=== PATIENT | male | born 1955 | race Caucasian/White ===

== ENCOUNTER → 2016-05-20 | Outpatient (CLI) | payer BC ==
[~2016-05-20] MED LIST: ACET-1256 PO; BUPR-267 PO; FENO145T26 PO; LOSA1TAB38 PO; LOSA50TA6 PO; MELO7.5T5 PO; OXYC-57 PO; PHEN-876 PO
[2016-05-20 12:43] LABS: BLOOD UREA NITROGEN 19 mg/dl (7-18); BUN/CREATININE RATIO 17.4 (10-20); CALCIUM 9.2 mg/dl (8.5-10.1); CARBON DIOXIDE 25 mmol/L (21-32); CHLORIDE 105 mmol/L (98-107); GLUCOSE 103 mg/dl (70-99); POTASSIUM 4.2 mmol/L (3.5-5.1); SODIUM 138 mmol/L (136-145)
== END | disposition home or self-care (01) ==
LOC: C.LABBFT 09:27
PROVIDERS: ATTEND Urology
DX: N40.0 Benign prostatic hyperplasia without lower urinary tract symptoms (principal); I10 Essential (primary) hypertension

== ENCOUNTER 2016-05-24 08:12 | Day surgery (SDC) | payer BC ==
[2016-05-13 10:55] VITALS: BMI 28.0
--- NOTE | 2016-05-13 11:39 | PAT Medication Instructions ---
Service Date May 13, 2016. Current Home Medication List Acetaminophen (Tylenol), 500 MG PO PRN Meloxicam (Mobic), 7.5 MG PO BID PRN for PRN Medication Instructions For Your Scheduled Surgery Meloxicam (Mobic), 7.5 MG PO BID PRN for PRN (patient not taking currently) - Take the following medications the morning of surgery with a sip of water: Acetaminophen (Tylenol), 500 MG PO PRN (if needed) - Take the following medications as scheduled the night before surgery: Acetaminophen (Tylenol), 500 MG PO PRN (if needed) If you have any questions please call us at [phone] or [phone] ( Jossy) or [phone]
[2016-05-13 12:03] LABS: BASO % 0.7 %; BASO ABS # 0.04 K/uL (0-0.2); COMPLETE YES; HEMATOCRIT 48.7 % (42-52); IG% 0.4 %; LYMPH % 33.7 %; LYMPH ABS # 1.92 K/uL (1.2-3.4); MEAN CELL VOLUME 91.5 fL (80-100); MEAN CORPUSCULAR HEMOGLOBIN 33.6 pg (25-34); MEAN CORPUSCULAR HGB CONC 36.8 g/dl (32-36); MEAN PLATELET VOLUME 10.4 fL (7.4-10.4); MONO % 7.9 %; NEUT % 54.3 %; PLATELET COUNT 161 K/uL (130-400); RED BLOOD COUNT 5.32 M/uL (4.7-6.1); WHITE BLOOD COUNT 5.69 K/uL (4.8-10.8)
--- NOTE | 2016-05-13 12:28 | DIAGNOSTIC IMAGING REPORT ---
CHEST PREADMISSION(PA/LAT) CLINICAL HISTORY: Preoperative chest COMPARISON STUDY: No previous studies for comparison. FINDINGS: The cardiac and mediastinal contours are normal. There is no evidence of focal pulmonary consolidation. There is no evidence of failure. No pleural effusions are visualized.[ IMPRESSION: No active disease in the chest. Electronically signed by: Samy Hammer M.D. 05/13/2016 12:26 PM Dictated Date/Time: 05/13/2016 12:26 PM
[2016-05-13 12:30] LABS: BUN/CREATININE RATIO 16.1 (10-20); CREATININE 0.94 mg/dl (0.60-1.40); POTASSIUM 4.4 mmol/L (3.5-5.1)
[2016-05-13 12:41] LABS: URINE APPEARANCE CLEAR (CLEAR); URINE BILIRUBIN NEG (NEG); URINE COLOR YELLOW; URINE NITRITE NEG (NEG); URINE SPECIFIC GRAVITY 1.011 (1.000-1.030); UROBILINOGEN NEG (NEG)
[2016-05-13 12:54] LABS: MANUAL MICROSCOPIC REQUIRED? NO; REVIEW REQ? NO
--- NOTE | 2016-05-21 14:02 | Anesthesiology Progress Note ---
Anesthesia Progress Note Date of Service May 21, 2016. Progress Notes Patient scheduled for cardio clearance Tuesday05/21/16 secondary to EKG changes before is Tuesday05/24/16 surgery. Cardio clearance received. ECHO done at that appt but only preliminary reading available. Spoke with cardiology office and was told "there is no way we can get that to you today." Cardio office was unsure if final reading would even be available Tuesday. Aware surgery is Tuesday. Discussed with Dr. Yovana Holman (anesthesiologist on case), will proceed with surgery Tuesday pending final ECHO reading (if needed, will see if cardio can do final reading prior to surgery)
[~2016-05-24] VITALS: Ht 193 cm; Wt 108.0 kg
[~2016-05-24 08:12] MED LIST changes: +DEXAMETHASONE SOD INJ 4 MG/ML VIAL ONE; -FENO145T26 PO; +FENTANYL CITRATE INJ 50 MCG/1 ML 2 ML VIAL ONE; +GENTAMICIN INJ 80 MG in DEXTROSE 5% 100ML 100 ML IV SCH; +LACTATED RINGER'S 1000ML 1,000 ML IV SCH; +LIDOCAINE HCL 2% 2 ML VIAL (20MG/ML) ONE; -LOSA1TAB38 PO; +MIDAZOLAM HCL 1 MG/ML 2ML VIAL ONE; +ONDANSETRON INJ 2 MG/ML 2 ML VIAL ONE; -OXYC-57 PO; -PHEN-876 PO; +PROPOFOL IV EMULSION 10 MG/ML 20 ML VIAL IV ONE
[2016-05-24] MEDS ORDERED: GLYCOPYRROLATE INJ 0.2 MG/ML VIAL ONE ×2 (08:13→09:39)
[2016-05-24] MEDS ORDERED: NEOSTIGMINE METHYLSULFATE 5 MG/5 ML SYR ONE (08:13)
[2016-05-24] MEDS ORDERED: ROCURONIUM BROMIDE 10 MG/ML 5 ML VIAL ONE (08:13)
--- NOTE | 2016-05-24 08:30 | History & Physical Bridge Note ---
H&P Re-Evaluation Bridge Note: I have examined the patient, reviewed the History & Physical and in the interval since the performance of the History & Physical I have noted the following changes of clinical significance: No changes noted
[2016-05-24] MEDS ORDERED: FENO145T26 PO (08:39)
[2016-05-24] MEDS ORDERED: LOSA1TAB38 PO (08:39)
[2016-05-24 08:43] VITALS: BP 165/93; PULSE 72; TEMP 36.4; O2SAT 94; Ht 193 cm; Wt 108.0 kg
[2016-05-24] MEDS ORDERED: ALBUTEROL HFA INHALER 8.5 GM INH ONE (09:20)
[2016-05-24] MEDS ORDERED: DEXAMETHASONE SOD INJ 4 MG/ML VIAL ONE (09:20)
[2016-05-24] MEDS ORDERED: EpHEDrine SULFATE 50MG/5ML SYR ONE (09:32)
--- NOTE | 2016-05-24 09:59 | [facility] Post Operative Brief Note ---
Immediate Operative Summary Operative Date May 24, 2016. Pre-Operative Diagnosis Bladder mass Post-Operative Diagnosis Bladder mass Procedure(s) Performed Transuretheral Resection Bladder Tumor Surgeon Dr. Bess Hvac R Instructor Surgeon(s) none Estimated Blood Loss 1 cc Findings papillary bladder tumor lateral to left uo Specimens A: Bladder Tumor Drains none
[2016-05-24] MEDS ORDERED: PHEN-876 PO (10:00)
[2016-05-24] MEDS ORDERED: OXYC-57 PO (10:00)
[2016-05-24] MEDS ORDERED: OXYCODONE/ACETAMINOPHEN 5-325 TAB PO PRN (10:00)
--- NOTE | 2016-05-24 10:00 | Discharge Instructions ---
Discharge Instructions Visit Reason for Visit: Bladder Cancer Discharge Discharge Diagnosis / Problem: bladder cancer Discharge Goals Goal(s): Therapeutic intervention Activity Recommendations Activity Limitations: resume your previous activity (take it easy today) Anesthesia . Post Anesthesia Instructions: If you have had General Anesthesia or IV Sedation: * Do not drive today. * Resume driving when surgeon permits. * Do not make important decisions or sign legal documents today. * Call surgeon for: 1. Temperature elevations greater than 101 degrees F. 2. Uncontrollable pain. 3. Excessive bleeding. 4. Persistent nausea and vomiting. 5. Medication intolerance (nausea, vomiting or rash). * For nausea and vomiting use only clear liquids such as: tea, soda, bouillon until nausea subsides, then gradually increase diet as tolerated. * If you have any concerns or questions, call your surgeon's office. If physician is unavailable and it is an emergency, call 911 or go to the nearest emergency room. . Diet Recommendations Recommended Home Diet: resume previous diet Procedures Procedures Performed: Transuretheral Resection Bladder Tumor Pending Studies Studies pending at discharge: no Medical Emergencies . Who to Call and When: Medical Emergencies: If at any time you feel your situation is an emergency, please call 911 immediately. . Non-Emergent Contact Non-Emergency issues call your: Urologist . . "Provider Documentation" section prepared by James Bess. [place] Drug Monitoring Program Search Results: patient reviewed within database
--- NOTE | 2016-05-24 10:35 | Anesthesiology Progress Note ---
Anesthesia Post Op Note Date & Time May 24, 2016 at 10:36 Vital Signs Pain Intensity: 0 Vital Signs Past 12 Hours Date Time Temp Pulse Resp B/P Pulse Ox O2 Delivery O2 Flow Rate FiO2 05/24/16 10:25 68 17 126/73 94 Room Air 05/24/16 10:15 70 18 131/71 96 Mask 10 05/24/16 10:05 81 16 174/96 100 Mask 10 05/24/16 09:59 36.2 75 17 153/136 99 Mask 10 05/24/16 08:43 36.4 72 20 165/93 94 Room Air Notes Mental Status: alert / awake / arousable, participated in evaluation Pt Amnestic to Procedure: Yes Nausea / Vomiting: adequately controlled Pain: adequately controlled Airway Patency, RR, SpO2: stable & adequate BP & HR: stable & adequate Hydration State: stable & adequate Anesthetic Complications: no major complications apparent
[2016-05-24 10:45] VITALS: BP 132/68; PULSE 62; TEMP 36.4; O2SAT 96
[2016-05-24 11:14] VITALS: BP 136/73; PULSE 57; TEMP 36.2; O2SAT 95
--- NOTE | 2016-05-24 11:41 | OPERATIVE REPORT ---
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 POSTOPERATIVE DIAGNOSIS: Same. PROCEDURES: Cystoscopy, transurethral resection, fulguration of bladder tumor medium size. FINDINGS: Cystoscopic exam revealed normal anterior urethra. Prostatic fossa was nonobstructing. Bladder showed tumor just lateral to the left ureteral orifice. Rest of the bladder was unremarkable. SURGEON: Dr. Bess. ANESTHESIA: General. DRAINS: None. COMPLICATIONS: None. SPECIMENS: Bladder tumor fragments. INDICATIONS: The patient is a 61-year-old white male who on cystoscopy for hematuria evaluation was found to have a papillary bladder tumor. He is being brought in now for resection. PROCEDURE IN DETAIL: After the induction of an adequate general anesthetic and appropriate time-out, the patient was placed in the dorsal lithotomy position, lower abdomen and genitalia were prepped with Hibiclens and draped in a sterile fashion. Using a 22-Guinean cystoscope, routine cystoscopic exam was performed with the above noted findings with the 30 and 70 degree lenses. Next, a 5-Guinean Pollack catheter was passed up the left ureteral orifice into the left ureter since the tumor was very close to the ureteral orifice. Next, using a 24-Guinean resection scope and bipolar loop, the tumor was resected in its entirety. The area was then fulgurated for hemostasis. An Document Agility evacuator was used to evacuate all the bladder tumor fragments which were handed off the table. Final view revealed no bleeding from the resection site. There were no bladder tumor fragments remaining in the bladder. The patient's bladder was then drained, cystoscope and sheath were removed. All needle, sponge and instrument counts were correct at the end of the case. The patient tolerated the procedure well and was taken to the recovery room in stable condition. I attest to the content of the Intraoperative Record and any orders documented therein. Any exceptio ns are noted below.
[2016-05-24 11:45] VITALS: BP 155/83; PULSE 56; TEMP 36.2; O2SAT 95
== END 2016-05-24 11:45 | disposition home or self-care (01) ==
LOC: C.ACU 08:12
PROVIDERS: ATTEND Urology
DX: C67.9 Malignant neoplasm of bladder, unspecified (principal); I10 Essential (primary) hypertension; M19.90 Unspecified osteoarthritis, unspecified site; Z87.39 Personal history of other diseases of the musculoskeletal system and connective tissue; Z87.891 Personal history of nicotine dependence; Z98.890 Other specified postprocedural states; Z91.040 Latex allergy status; Z82.49 Family history of ischemic heart disease and other diseases of the circulatory system; Z83.3 Family history of diabetes mellitus; Z80.3 Family history of malignant neoplasm of breast; Z68.28 Body mass index [BMI] 28.0-28.9, adult

== ENCOUNTER → 2016-11-18 | Outpatient (CLI) | payer BC ==
[~2016-11-18] MED LIST changes: -DEXAMETHASONE SOD INJ 4 MG/ML VIAL ONE; +FENO145T26 PO; -FENTANYL CITRATE INJ 50 MCG/1 ML 2 ML VIAL ONE; -GENTAMICIN INJ 80 MG in DEXTROSE 5% 100ML 100 ML IV SCH; -LACTATED RINGER'S 1000ML 1,000 ML IV SCH; -LIDOCAINE HCL 2% 2 ML VIAL (20MG/ML) ONE; +LOSA1TAB38 PO; -LOSA50TA6 PO; -MIDAZOLAM HCL 1 MG/ML 2ML VIAL ONE; -ONDANSETRON INJ 2 MG/ML 2 ML VIAL ONE; +OXYC-57 PO; +PHEN-876 PO; -PROPOFOL IV EMULSION 10 MG/ML 20 ML VIAL IV ONE
== END | disposition home or self-care (01) ==
LOC: C.PATHSPEC 17:18
PROVIDERS: ATTEND Urology
DX: C67.9 Malignant neoplasm of bladder, unspecified (principal)

== ENCOUNTER → 2017-06-28 | Outpatient (CLI) | payer BC ==
[~2017-06-28] MED LIST changes: -OXYC-57 PO; -PHEN-876 PO
[2017-06-28 12:23] LABS: HEMATOCRIT 45.7 % (42-52); HEMOGLOBIN 16.6 g/dL (14.0-18.0); MEAN CELL VOLUME 93.6 fL (80-100); MEAN CORPUSCULAR HGB CONC 36.3 g/dl (32-36); MEAN PLATELET VOLUME 10.6 fL (7.4-10.4); PLATELET COUNT 167 K/uL (130-400); RED CELL DISTRIBUTION WIDTH CV 12.3 % (11.5-14.5); RED CELL DISTRIBUTION WIDTH SD 41.3 fL (36.4-46.3); WHITE BLOOD COUNT 7.23 K/uL (4.8-10.8)
[2017-06-28 13:18] LABS: BLOOD UREA NITROGEN 21 mg/dl (7-18); CARBON DIOXIDE 29 mmol/L (21-32); CHOLESTEROL 230 mg/dl (0-200); CREATININE 1.17 mg/dl (0.60-1.40); GLUCOSE 90 mg/dl (70-99); POTASSIUM 3.8 mmol/L (3.5-5.1); SODIUM 138 mmol/L (136-145)
== END | disposition home or self-care (01) ==
LOC: C.LABBFT 09:53
PROVIDERS: ATTEND Physician Assistant Medical
DX: C67.9 Malignant neoplasm of bladder, unspecified (principal); I10 Essential (primary) hypertension; E78.00 Pure hypercholesterolemia, unspecified; Z11.59 Encounter for screening for other viral diseases

== ENCOUNTER → 2017-07-26 | Day surgery (SDC) | payer BC ==
[2017-07-08 15:53] VITALS: Ht 188 cm; Wt 109.1 kg
[2017-07-18 12:17] LABS: BASO % 0.9 %; BASO ABS # 0.05 K/uL (0-0.2); EOS % 2.6 %; EOS ABS # 0.14 K/uL (0-0.5); HEMATOCRIT 43.2 % (42-52); HEMOGLOBIN 15.8 g/dL (14.0-18.0); IG# 0.01 K/uL (0.00-0.02); LYMPH ABS # 1.65 K/uL (1.2-3.4); MEAN CELL VOLUME 93.7 fL (80-100); MEAN CORPUSCULAR HEMOGLOBIN 34.3 pg (25-34); MEAN CORPUSCULAR HGB CONC 36.6 g/dl (32-36); MEAN PLATELET VOLUME 10.4 fL (7.4-10.4); MONO ABS # 0.48 K/uL (0.11-0.59); NEUT % 56.3 %; PLATELET COUNT 181 K/uL (130-400); RED CELL DISTRIBUTION WIDTH SD 40.4 fL (36.4-46.3); WHITE BLOOD COUNT 5.33 K/uL (4.8-10.8)
[2017-07-18 12:25] LABS: PTT PATIENT 26.8 SECONDS (21.0-31.0)
[2017-07-18 12:44] LABS: CALCIUM 9.2 mg/dl (8.5-10.1); CREATININE 1.19 mg/dl (0.60-1.40); POTASSIUM 4.2 mmol/L (3.5-5.1)
[~2017-07-26] VITALS: Ht 188 cm; Wt 109.1 kg
[~2017-07-26] MED LIST changes: -ACET-1256 PO; +ACETAMINOPHEN 325 MG TAB PO PRN; +AMLO-110 PO; +ATROPINE SULFATE 0.1 MG/ML 5ML SYR IV PRN; +BUPIVACAINE 0.25% 2.5MG/ML PF 10 ML VIAL ONE; -BUPR-267 PO; +CEFAZOLIN 2000MG IV PUSH 15 ML IV SCH; -FENO145T26 PO; +FENTANYL CITRATE INJ 50 MCG/1 ML 2 ML VIAL IV PRN; +FENTANYL CITRATE INJ 50 MCG/1 ML 2 ML VIAL ONE; +HYDR25TA4 PO; +KETOROLAC TROMETHAMINE 30 MG/ML VIAL IV. PRN; +LABETALOL HCL IV 5 MG/ML 20ML IV PRN; +LACTATED RINGER'S 1000ML 1,000 ML IV SCH; +LIDOCAINE HCL 2% 2 ML VIAL (20MG/ML) ONE; +LIDOCAINE/EPINEPHRINE 1% 20 ML VIAL ONE; -MELO7.5T5 PO; +MELO7.5T7 PO; +METOCLOPRAMIDE HCL INJ 5 MG/ML 2 ML VIAL IV PRN; +MIDAZOLAM HCL 1 MG/ML 2ML VIAL ONE; +ONDANSETRON INJ 2 MG/ML 2 ML VIAL IV PRN; +OXYCODONE/ACETAMINOPHEN 5-325 TAB PO PRN; +PROPOFOL IV EMULSION 10 MG/ML 20 ML VIAL IV ONE; +ROSU5TAB19 PO; +SODIUM CHLORIDE 0.9% 1000ML 1,000 ML IV SCH
--- NOTE | 2017-07-26 09:18 | [facility] Post Operative Brief Note ---
Immediate Operative Summary Operative Date Jul 26, 2017. Pre-Operative Diagnosis Right Posterior Neck soft tissue mass Post-Operative Diagnosis same as pre op Procedure(s) Performed Right Posterior Neck Lump Excision Surgeon Dr Brunson Sand Slinger Operator Surgeon(s) LEAH Garcia Estimated Blood Loss 2 Findings Consistent with Post-Op Diagnosis Specimens 3.8x2.2 cm firm nodule sent to pathology Drains None Anesthesia Type MAC Complication(s) none Disposition Disposition: Recovery Room / PACU
[2017-07-26 09:30] VITALS: TEMP 36.4
--- NOTE | 2017-07-26 09:32 | Discharge Instructions ---
Discharge Instructions Date of Service Jul 26, 2017. Admission Reason for Admission: Right Posterior Neck Lipoma,D17.9,Z01.818 Discharge Discharge Diagnosis / Problem: posterior neck mass Discharge Goals Goal(s): Decrease discomfort, Improve function Activity Recommendations Activity Limitations: per Instructions/Follow-up section ACTIVITY RECOMMENDATIONS: __Normal activities _x_No bending, lifting or straining __No driving _x_Driving allowed when you are off pain medications _x Walking permitted __You should have help at home for ___ days DRESSINGS: __No dressings required _x_Keep dressings dry/in place until first office visit __Remove dressings ___ and leave dressings off _x_Apply ice _3__ days __Remove dressings and reapply garment __Apply antibiotic ointment (Bacitracin, Neosporin, etc) to wounds 3-4 times/ day for 10 days BATHING: _x_Keep dressings dry _x_Sponge bathing permitted away from incision area __Showering permitted _x_No swimming, hot tubs or soaking in a tub MEDICATIONS: Resume previous medications unless instructed otherwise by your surgeon. _x_Do not use aspirin, Motrin, Advil or Ibuprofen as these may promote bleeding. Please use Tylenol. _x_Prescription(s) provided:pain medication was provided at your last office visit OTHER INSTRUCTIONS: __Record drain output 2-3 times per day SPECIAL CARE INSTRUCTIONS: * It is normal to have a mild fever after surgery. If your temperature is higher than 101.5 degrees F, please call the office at [phone]. * Constipation is a typical side effect of pain medication. An over-the- counter stool softener will help relieve this. * Leaking around surgical drains may occur and should not cause concern. Sometimes these drains become clogged. If this happens, remove the bulb and milk the clot out of the tube, then replace the bulb. * Drainage from wounds after liposuction is normal and should be expected. Garments will become soiled. You should protect furniture and bedding. This drainage should mostly subside within 2-3 days. Leave garments in place unless instructed to remove them. * If you have unusual drainage from a wound or are concerned you have an infection or have any questions or concerns, please call the office at [phone]. FOLLOW UP VISIT: If not already scheduled, please call the office, , when you return home after surgery to schedule an appointment to be seen in _2__ days. . Current Hospital Diet Patient's current hospital diet: Discharge Diet Recommended Diet: Regular Diet Procedures Procedures Performed: Right Posterior Neck Lump Excision Pending Studies Studies pending at discharge: yes List of pending studies: pathology Laboratory Results Lipid Panel Test 06/28/17 10:01 Range/Units Triglycerides Level 636 H 0-150 mg/dl Cholesterol Level 230 H 0-200 mg/dl HDL Cholesterol 37 mg/dl Cholesterol/HDL Ratio 6.2 LDL Cholesterol, Calculated mg/dl Medical Emergencies . Who to Call and When: Medical Emergencies: If at any time you feel your situation is an emergency, please call 911 immediately. . Non-Emergent Contact Non-Emergency issues call your: Primary Care Provider, Surgeon . "Provider Documentation" section prepared by Corinne Portillo. . [place] Drug Monitoring Program Search Results: no issues identified
[2017-07-26 09:56] VITALS: BP 136/73; PULSE 55; O2SAT 96
--- NOTE | 2017-07-26 10:01 | Anesthesia Progress Nt - [facility] ---
Anesthesia Post Op Note Date & Time Jul 26, 2017 at 10:01 Vital Signs Pain Intensity: 0 Vital Signs Past 12 Hours Date Time Temp Pulse Resp B/P (MAP) Pulse Ox O2 Delivery O2 Flow Rate FiO2 07/26/17 09:56 55 12 136/73 (94) 96 Room Air 07/26/17 09:30 36.4 71 12 147/82 (103) 96 Room Air 07/26/17 07:45 36.7 63 16 159/99 (119) 94 Room Air Notes Mental Status: alert / awake / arousable, participated in evaluation Pt Amnestic to Procedure: Yes Nausea / Vomiting: adequately controlled Pain: adequately controlled Airway Patency, RR, SpO2: stable & adequate BP & HR: stable & adequate Hydration State: stable & adequate Anesthetic Complications: no major complications apparent
--- NOTE | 2017-07-26 14:50 | OPERATIVE REPORT ---
DATE OF OPERATION: 07/26/2017 PREOPERATIVE DIAGNOSIS: Right posterior neck soft tissue mass. POSTOPERATIVE DIAGNOSIS: Same. PROCEDURE: Right posterior neck soft tissue mass excision. SURGEON: Dr. Arianna Brunson. BLOOD BANK COORDINATOR: Corinne Portillo PA-C. ANESTHESIA: Local with sedation. COMPLICATIONS: None. INDICATION FOR THE PROCEDURE: The patient is a 62-year-old male who presented to my office with a soft tissue mass of his right posterior neck. Ultrasound in 2015 showed a 3.8 cm lipoma. He began to experience symptoms of discomfort from the lesion and desired removal. BRIEF DESCRIPTION OF THE PROCEDURE: The risks, benefits and alternatives of the procedure were explained to the patient who agreed and signed consent. He was identified and marked in the preoperative holding area. He was brought to the operating room where he was positioned prone and placed under sedation without incident. Surgical site was prepped and draped sterilely. A time-out procedure was performed. 1% lidocaine with epinephrine mixed with 0.25% Marcaine plain was used to anesthetize the planned surgical site. A 15 blade scalpel was used to make the linear incision. Within the subcutaneous fat, a firm nodule was encountered. It was not well circumscribed and was fairly adherent to surrounding tissue and therefore could not be easily dissected as I would for a lipoma. Ultimately, electrocautery was used to excise the lesion with some areas being smooth and easily dissectible, other areas requiring electrocautery to dissect free from soft tissue and underlying musculature. Once removed, the mass measured 3.8 x 2.2 cm and was located in the subcutaneous plane. Hemostasis was achieved with electrocautery. The specimen was passed off for pathology. The wound was irrigated with normal saline. Wound was reapproximated using 2-0 Vicryl deep dermal sutures and 3-0 Monocryl running subcuticular suture. Dermabond and a dry dressing were applied. The procedure was tolerated well. He was awakened and transferred to recovery in satisfactory condition. I attest to the content of the Intraoperative Record and any orders documented therein. Any exception s are noted below.
== END | disposition home or self-care (01) ==
LOC: X.SURG 07:20
PROVIDERS: ATTEND Plastic Surgery
DX: D17.9 Benign lipomatous neoplasm, unspecified (principal); M19.90 Unspecified osteoarthritis, unspecified site; N40.0 Benign prostatic hyperplasia without lower urinary tract symptoms; F17.200 Nicotine dependence, unspecified, uncomplicated; F32.9 Major depressive disorder, single episode, unspecified; K21.9 Gastro-esophageal reflux disease without esophagitis; E78.00 Pure hypercholesterolemia, unspecified; I10 Essential (primary) hypertension; Z82.49 Family history of ischemic heart disease and other diseases of the circulatory system; Z80.3 Family history of malignant neoplasm of breast; Z81.1 Family history of alcohol abuse and dependence; Z83.6 Family history of other diseases of the respiratory system; Z83.42 Family history of familial hypercholesterolemia; Z83.3 Family history of diabetes mellitus; Z80.42 Family history of malignant neoplasm of prostate; Z88.8 Allergy status to other drugs, medicaments and biological substances; Z91.040 Latex allergy status; Z85.51 Personal history of malignant neoplasm of bladder

== ENCOUNTER → 2017-11-25 | Outpatient (CLI) | payer BC ==
[~2017-11-25] MED LIST changes: -ACETAMINOPHEN 325 MG TAB PO PRN; -AMLO-110 PO; +AMLO5TAB3 PO; -ATROPINE SULFATE 0.1 MG/ML 5ML SYR IV PRN; -BUPIVACAINE 0.25% 2.5MG/ML PF 10 ML VIAL ONE; -CEFAZOLIN 2000MG IV PUSH 15 ML IV SCH; -FENTANYL CITRATE INJ 50 MCG/1 ML 2 ML VIAL IV PRN; -FENTANYL CITRATE INJ 50 MCG/1 ML 2 ML VIAL ONE; -KETOROLAC TROMETHAMINE 30 MG/ML VIAL IV. PRN; -LABETALOL HCL IV 5 MG/ML 20ML IV PRN; -LACTATED RINGER'S 1000ML 1,000 ML IV SCH; -LIDOCAINE HCL 2% 2 ML VIAL (20MG/ML) ONE; -LIDOCAINE/EPINEPHRINE 1% 20 ML VIAL ONE; -METOCLOPRAMIDE HCL INJ 5 MG/ML 2 ML VIAL IV PRN; -MIDAZOLAM HCL 1 MG/ML 2ML VIAL ONE; -ONDANSETRON INJ 2 MG/ML 2 ML VIAL IV PRN; -OXYCODONE/ACETAMINOPHEN 5-325 TAB PO PRN; -PROPOFOL IV EMULSION 10 MG/ML 20 ML VIAL IV ONE; +ROSU5TAB11 PO; -ROSU5TAB19 PO; -SODIUM CHLORIDE 0.9% 1000ML 1,000 ML IV SCH
== END | disposition home or self-care (01) ==
LOC: C.LABBFT 13:52
PROVIDERS: ATTEND Physician Assistant Medical
DX: E78.00 Pure hypercholesterolemia, unspecified (principal)

== ENCOUNTER 2024-01-05 08:04 | Inpatient (IN) ==
--- NOTE | 2023-12-28 11:18 | Anesthesiology Consultation ---
Date of Service December 28, 2023 Assessment & Plan (1) Encounter for pre-operative examination: Chart Review Chart Review: Acceptable Risk for Surgery and Patient NOT seen in Pre Admission Testing Consults Requested none History Surgery Operation Date: 01/05/24 07:30 Proposed Procedures p Robotic Assisted Laparoscopic Radical Retropubic Prostatectomy, Possible Open, Possible Pelvic Lymph Node Dissection - Akshat Soto MD Height/Weight Height: 6 ft 3 in Weight: 74.843 kg Allergies Allergy/AdvReac Type Severity Reaction Status Date / Time latex Allergy Mild Rash Verified 12/27/23 09:49 Awlzcke-KQN-ObW Reductase AdvReac Intermediate Cough Verified 12/27/23 09:49 Inhibitor [Qlbcguw-Bap-Aol Reductase Inhibitor] Medications Home Medications Medication Instructions Recorded Confirmed Last Taken acetaminophen 325 mg tablet 325 mg PO QID PRN Pain 07/03/19 12/27/23 Unknown (Tylenol) losartan 100 mg tablet 100 mg PO QAM #90 tabs 02/21/20 12/27/23 06/18/21 08:30 amlodipine 5 mg tablet 5 mg PO QAM #90 tabs 09/29/20 12/27/23 06/18/21 08:30 hydrochlorothiazide 25 mg tablet 25 mg PO QAM #90 tabs 10/31/20 12/27/23 06/17/21 rosuvastatin 5 mg tablet 5 mg PO HS #90 tabs 10/31/20 12/27/23 06/17/21 20:00 bupropion HCl 150 mg tablet,12 hr 150 mg PO QAM 07/12/23 12/27/23 Unknown sustained-release tamsulosin 0.4 mg capsule 0.4 mg PO DAILY 12/19/23 12/27/23 Unknown benzonatate 100 mg capsule 100 mg PO TID PRN Cough 12/27/23 12/27/23 Unknown meloxicam 7.5 mg tablet 7.5 mg PO UD PRN Pain 12/27/23 12/27/23 Unknown Past Medical History Medical History GÓMEZ (dyspnea on exertion) per , she stated pt will deny this and has refused f/u w/ pulm COPD (chronic obstructive pulmonary disease) Depression Esophageal reflux no meds Transitional cell carcinoma of bladder hx 2018, sx Hx of colonic polyps Prostate cancer dx 06/16/23 Nocturnal leg cramps Osteoarthritis Hearing deficit Hypertension Hyperlipidemia Past Family History Family History Father Alcohol abuse Cardiac disorder Emphysema, unspecified Peripheral vascular disease Tobacco use Pneumonia Hypertension Mother Coronary heart disease Cardiac disorder Peripheral vascular disease Hypertension Brother Diabetes Peripheral vascular disease Sister Pure hypercholesterolemia Family/Other Colon cancer Other No family history of adverse response to anesthesia Denies family history of Ovarian cancer Prostate cancer Myocardial infarction Breast cancer Past Surgical History Surgical History S/P excision of ganglion cyst removed from 2 fingers Hx of prostate biopsy History of cystoscopy History of bladder surgery tumor removed History of tooth extraction History of carpal tunnel surgery of right wrist rt Status post excision of lipoma back of neck History of colonoscopy Social History Smoking Status: Former smoker tobacco type: cigars Smoking cigarettes per day: 15-20 Do You Dip or Chew Tobacco: No Smoking End Date: 03/2023 Hx Alcohol Use: Yes Alcohol type: beer and wine alcohol intake frequency: other Alcohol Intake Frequency Comment: maybe once per month for wine/beer; whiskey unsure of how much Hx Substance Use: No substance use type: does not use Testing Electrocardiogram Date: 12/22/23 Findings: + NSR @ with palmer Dodd Echocardiogram Date: 04/29/23 EF: 55-59 LV Function: normal
--- OUTSIDE RECORDS SUMMARY | 2024-01-05 08:28 | External Medical Summary | Summary of Care ---
Author Name Unknown Organization [facility] Address [address] [place] [facility] [place] [address] Phone [phone] Care Team Providers Care Glass Cleaning Machine Tender Name Role Phone Rafael Paz DO Primary Care Provider [phone] Reason for Visit * Reason Onset Date Comments Med Request 01/04/2024 EUFLEXXA Encounter Details Date Type Department Care Team (Late st Contact Info) Description 01/04/2024 Telephone Orthopaedics [facility] [address] [place] [address] Adrianne Garcia PA-C [address] [place] [address] Med Request (EUFLEXXA/) Allergies Active Allergy Reactions Criticality Noted Date Comments Latex Rash 05/20/2008 Statins Cough High 06/18/2021 documented as of this encounter (statuses as of 01/04/2024) Medications Medication Sig Dispensed Refills Start Date End Date Status buPROPion HCl ER (SR) 150 MG Oral Tablet Extended Release 12 Hour (Wellbutrin SR)Indications:Tobacco use One tablet a day for 1 week then increase to one tablet two times a day 60 Tablet 5 3 Active Additional Information Patient taking differently: 150 mg Daily(Non-Specified), (No instructions reported), Reported on 10/11/2023 Sildenafil Citrate 20 MG Oral Tablet (Revatio)Indications:Ere ctile dysfunction due to diseases classified elsewhere TAKE 2 TABLETS BY MOUTH 1 TO 4 HOURS PRIOR TO SEX 10 Tablet 5 4 Active hydroCHLOROthiazide 25 MG Oral Tablet (Hydrodiuril) TAKE ONE TABLET BY MOUTH EVERY DAY IN THE MORNING 100 Tablet 3 4 Active amLODIPine Besylate 5 MG Oral Tablet (Norvasc) TAKE ONE TABLET BY MOUTH EVERY DAY IN THE MORNING 100 Tablet 3 4 Active Losartan Potassium 100 MG Oral Tablet (Cozaar) TAKE ONE TABLET BY MOUTH EVERY MORNING 100 Tablet 2 4 Active Rosuvastatin Calcium 5 MG Oral Tablet (Crestor)Indications:Pur e hypercholesterolemia TAKE ONE TABLET BY MOUTH EVERY DAY 100 Tablet 3 4 12/27/19 25 Active Hospital, Clinic, or Other Facility Administered Medication Ordered Dose Route Frequency Start Date End Date Status Albuterol Sulfate (Proventil) (2.5 MG/3ML) 0.083% inhalation solution 2.5 mgIndications:Shortness of breath 2.5 mg NEBULIZER ONCE PRN 10/11/2023 10/10/2024 Active documented as of this encounter (statuses as of 01/04/2024) Active Problems Problem Noted Date Diagnosed Date Chronic kidney disease, stage 3a 10/31/2023 Overview: Per CKD protocol Digital mucous cyst of finger of right hand 06/24 Prostate cancer 06/22/2023 Prediabetes 05/02/2023 Overview: Per Prediabetes protocol BPH with obstruction/lower urinary tract symptom s 04/01/2022 Erectile dysfunction due to diseases classified elsewhere 04/01/2022 History of bladder cancer 06/02/2021 Pure hypercholesterolemia 06/02/2021 History of tobacco use 05/26/2008 Chronic rhinitis 05/26/2008 Deviated nasal septum 05/20/2008 Noise-induced hearing loss 05/20/2008 Subjective tinnitus 05/20/2008 HTN, goal below 140/90 05/20/2008 documented as of this encounter (statuses as of 01/04/2024) Resolved Problems Problem Noted Date Diagnosed Date Resolved Date History of bladder cancer 05/28/2022 Esophageal reflux 05/26/2008 06/02/2021 Dyspnea and respiratory abnormality 05/20/2008 06/02/2021 Overview: ICD-10 update of inactive term documented as of this encounter (statuses as of 01/04/2024) Immunizations Name Administration Dates Next Due COVID-19 mRNA, LNP-s, No Pre serve, 2-Dose Series (Moderna) 07/28/2020,06/30/2020 COVID-19, LNP-s, No Preserve , Ja-sucrose, Ages 12+ (Pfizer) 09/01/2021 COVID-19, MRNA-LNP, 23-24, P F, 30 MCG/0.3 mL, 12 YRS AND ABOVE, IM (Sipwise-Comirnaty) 10/11/2023 COVID-19, MRNA-LNP, 23-24, P F, 50 MCG/0.5 mL, 12 YRS AND ABOVE, IM (MODERNA-Spikevax) 02/15/2023 COVID-19, mRNA, LNP-s, PF, B ooster, 100mcg/0.5mg (Moderna) 04/23/2021 Covid-19, Mrna, Lnp-s, Pf, B ivalent, 30 Mcg, IM, 12 yrs and above (Wis.dm) 04/06/2022 HepA Inact/HepB Recomb>=18yrs old 06/07/2008,03/2008,11/17/2007 Pneumococcal Conjugate Vacc, 13 Valent (Prevnar) 12/18/2018 Pneumococcal Polysaccharide PPV23 (Pneumovax) 01/10/2021,03/27/2013 RSV Vac., Recomb, Adjuvant, PF,0.5 Ml (Arexvy) 03/18/2023 Seasonal Influenza Virus Vac cine, Unspecified Formulation 05/02/2017,05/03/2016,05/06/2015,01/11,03/27/2013,05/03/2012,01/24/2011 Seasonal Influenza, Quadriva lent Hd (Fluzone Hd) 02/06/2023,03/05/2022 Seasonal Influenza, Quadriva lent Hd, 65+ Yrs 01/10/2021 TDAP (age 10 and older)(Boostrix) 12/27/2020 Zoster Vaccine Recombinant (Shingrix) 06/02/2021 ,12/27/2020 documented as of this encounter Social History Tobacco Use Types Packs/Day Years Used Date Smoking Tobacco: Former Cigarettes 1 30 S tarted: 04/08/1993 Passive Smoke Exposure: Current Smokeless Tobacco: Never Comments:Quit in March Alcohol Use Standard Drinks/Week Comments Yes 0 (1 standard drink = 0.6 oz pure alcohol) a couple drinks of whiskey every pm PHQ-2 Answer Date Recorded PHQ Adult Total Score 0 04/26/2023 Hunger Vital Sign Answer Date Recorded Within the past 12 months, y ou worried that your food would run out before you got the money to buy more. Never true 04/26/19 24 Within the past 12 months, t he food you bought just didn't last and you didn't have money to get more. Never true 04/26/2023 Childcare Answer Date Recorded Do you feel overwhelmed with taking care of a child, family member or friend? No 04/26/2023 Does your family need help f inding childcare? (Household - for ages 0-17 years) Not on file 04/26/2023 Clothing Answer Date Recorded Have you been unable to get clothing when it was really needed? No 04/26/2023 Is your family able to get c lothes or diapers when needed? (Household - for ages 0-17 years) Not on file 04/26/2023 Personal Safety Answer Date Recorded Do you feel unsafe or have concerns for your saf ety? No 04/26/2023 Do you have concerns for you r family's safety? (Household - for ages 0-17 years) Not on file 04/26/2023 Utilities Answer Date Recorded Do you have trouble paying y our heating, water, or electric bill? No 04/26/2023 Is your family able to pay t he heat, water, or electric bill? (Household - for ages 0-17 years) Not on file 04/26/2023 Does your family have access to good internet? (Household - for ages 0-17 years) Not on file 04/26/2023 Employment Status Answer Date Recorded Are you unemployed or without regular income? No 04/26/2023 Does the household have a re gular source of income? (Household - for ages 0-17 years) Not on file 04/26/2023 Social Connections Answer Date Recorded How often do you feel lonely or isolated from th ose around you? Never 04/26/2023 Financial Resource Strain Answer Date R ecorded Do you have any trouble payi ng for your medications, or do you think you might in the future? No 04/26/2023 Does your family have troubl e paying for medicine? (Household - for ages 0-17 years) Not on file 04/26/2023 Transportation Needs Answer Date Record ed READ ONLY Do you have troubl e getting a ride to medical visits or work? Never True 04/26/2023 Does your family have a hard time getting a ride to doctors visits? (Household - for ages 0-17 years) Not on file 04/26/2023 Has lack of transportation k ept you from medical appointments, meetings, work, or from getting things needed for daily living? Check all that apply. (Adult - for ages 18 years and over) Not on file 04/26/2023 Do you (or your family) have trouble finding or paying for a ride (transportation)? (Household - for ages 0-17 years) Not on file 04/26/2023 Housing Stability Answer Date Recorded Do you currently live in a s helter or have no steady place to sleep at night? No 04/26/2023 READ ONLY Do you think you a re at risk of becoming homeless? No 04/26/2023 Does your family worry about paying for your home or becoming homeless? (Household - for ages 0-17 years) Not on file 0 04/26/2023 Are you homeless or worried that you might be in the future? (Adult - for ages 18 years and over) Not on file Are you (or your family) falguni eless or worried that you might be in the future? (Household - for ages 0-17 years) Not on file Food Insecurity Answer Date Recorded Do you need food for this week? No 04/26/2023 Are you able to get enough f ood for your family? (Household - for ages 0-17 years) Not on file 04/26/2023 Does your family need food t his week? (Household - for ages 0-17 years) Not on file 04/26/2023 Do you always have enough fo od for your family? (Household - for ages 0-17 years) Not on file 04/26/2023 Sex and Gender Information Value Date Recorded Sex Assigned at Male 06/02/2021 1:06 PM EST Gender Identity Male 06/02/2021 1:06 PM EST Sexual Orientation Straight 06/02/2021 1: 06 PM EST Job Start Date Occupation Industry Not on file Not on file Not on file documented as of this encounter Miscellaneous Notes * Telephone Encounter - Karol Gomez OSA - 01/04/2024 2:49 PM EDT SEE REFERRAL MESSAGE * Telephone Encounter - Yoselin Arteaga MED ASSIST - 01/04/2024 8:46 AM EDT Orthopaedics Pre-Cert Request Medication/Disease State Information: Medication: Hyaluronate- Euflexxa (J7323): inject 20 mg (2 mL) once weekly for 3 weeks (total of 3 injections). Route to [id number] Is there radiological proof(x-ray, cat scan, mri of osteoarthritis? yesIf yes, date of scan: Has the patient tried physical therapy?yes Has the patient tried tylenol or NSAIDs?yes Has the patient failed corticosteroid injections of the knee?yes Has the patient tried weight loss?no Has the patient tried knee bracing?yes Has the patient tried a home exercise program?no Diagnosis (including ICD-10): Bilateral Osteoarthritis of Knee- M17.0 Medication(s) Tried/Failed/Contraindicated: See corresponding visit note(s) for additional supporting clinical information. Office Information: Prescriber: maninder sandoval * Telephone Encounter - Yoselin Arteaga MED ASSIST - 01/04/2024 8:46 AM EDT ----- Message from Adrianne Garcia sent at 01/03/2024 3:39 PM EDT ----- Please begin prior authorization process for bilateral knee viscosupplementation Once these are approved please assist in scheduling the patient in January for series of injections Thanks Conor documented in this encounter Plan of Treatment Upcoming Encounters Date Type Department Care Team (Late st Contact Info) Description 02/14/2024 10:40 AM EDT Office Visit Family Practice [address] [place] [address] [place] [address] Rafael Paz, [address] [place] [address] Health Maintenance Due Date Last Done Comments CKD PHOS USE SMARTSET 90785 1971 Cologuard 1998 Fecal Occult Blood Test 1998 Sigmoidoscopy 1998 Adult Wellness Visit 2019 Albumin/Creatinine Ratio 09/01/2022 09/01/2021 COVID-19 Vaccine ( season) 2023 10/11/2023, 02/15/2023, 04/06/2022, Additional history exists Influenza Vaccine (FLU shot) (#1) 2023 02/06/2023, 03/05/2022, 01/10/2021, Additional history exists GFR 04/11/2024 10/11/2023, 08/2023, 04/04/2023, Additional history exists Depression Screening 04/26/2024 04/26/2023 CKD HGB USE SMARTSET 85626 10/10/202410/10, 10/11/2023, 03/30/2023, Additional history exists HbA1c 10/10/2024 10/11/2023, 04/26/2023 Colonoscopy 06/18/2026 06/18/2021, 06/10/2020 Colorectal Cancer Screening 06/18/2026 Lipid Panel 10/20/2027 10/19/2022, 09/01/2021 DTap/Tdap Vaccines (2 - Td or Tdap) 12/27/2030 12/27/2020 Hepatitis B Vaccine Completed 06/07/2008, 01/05/2008, 11/17/2007 Pneumococcal Vaccine: 65+ Years Completed 01/10/2021, 12/18/2018, 03/27/2013 Zoster Vaccines Completed 06/02/2021, 12/27/2020 AAA Screening Completed 06/11/2021 HPV (Gardasil) Vaccine Aged Out No lo nger eligible based on patient's age to complete this topic MENINGOCOCCAL (MENACTRA/MENVEO) Aged Out No longer eligible based on patient's age to complete this topic documented as of this encounter Medical Devices Not on filedocumented as of this encounter Care Teams Glass Cleaning Machine Tender Relationship Specialty Start Date End Date Rafael Paz DO [address] [place] [address] PCP - General Internal Medicine 10/06/23 documented as of this encounter
--- OUTSIDE RECORDS SUMMARY | 2024-01-05 08:28 | External Medical Summary | Summary of Care ---
Author Name Unknown Organization [facility] Address [address] [place] [address] Phone [phone] Care Team Providers Care Merchandise Executive Name Role Phone Rafael Paz DO Primary Care Provider [phone] Encounter Details Date Type Department Care Team (Latest Contact Info) Description 01/03/2024 3:30 PM EDT Telemedicine Orthopaedics [facility] [address] [place] [address] Semaj Hester DO [address] [place] [phone] Primary osteoarthritis of both knees* Allergies Active Allergy Reactions Criticality Noted Date Comments Latex Rash 05/20/2008 Statins Cough High 06/18/2021 documented as of this encounter (statuses as of 01/03/2024) Medications Medication Sig Dispensed Refills Start Date [...] as of this encounter (statuses as of 01/03/2024) Active Problems Problem Noted Date Diagnosed Date [...] as of this encounter (statuses as of 01/03/2024) Resolved Problems Problem Noted Date Diagnosed Date Resolved Date History of bladder cancer 05/28/2022 Esophageal reflux 05/26/2008 06/02/2021 Dyspnea and respiratory abnormality 05/20/2008 06/02/2021 Overview: ICD-10 update of inactive term documented as of this encounter (statuses as of 01/03/2024) Immunizations Name Administration Dates Next Due COVID-19 mRNA, LNP-s, No Pre serve, 2-Dose Series (Moderna) 07/28/2020,06/30/2020 COVID-19, LNP-s, No Preserve , Ja-sucrose, Ages 12+ (Pfizer) 09/01/2021 COVID-19, MRNA-LNP, 23-24, P F, 30 MCG/0.3 mL, 12 YRS AND ABOVE, IM (PFIZER-Comirnaty) 10/11/2023 COVID-19, MRNA-LNP, 23-24, P F, 50 MCG/0.5 mL, 12 YRS AND ABOVE, IM (MODERNA-Spikevax) 02/15/2023 COVID-19, mRNA, LNP-s, PF, B ooster, 100mcg/0.5mg (Moderna) 04/23/2021 Covid-19, Mrna, Lnp-s, Pf, B ivalent, 30 Mcg, IM, 12 yrs and above (Pfizer) 04/06/2022 HepA Inact/HepB Recomb>=18yrs old 06/07/2008,03/2008,11/17/2007 Pneumococcal [...] do you feel lonely or isolated from ose around you? Never 04/26/2023 Financial Resource [...] on file documented as of this encounter Progress Notes * Adrianne Garcia PA-C - 01/03/2024 3:30 PM EDT After connecting to the patient via telephone, the patient was identified by name and date of . Patient was then informed that this was a telephone call only visit. The patient agreed to participate. Visit Disposition: Routine follow-up Follow up after bilateral knee steroid injection. Patient reports he had approximately 90% relief in his knees for about 1 month and noticed this began to wear off. He states he has been taking Tylenol for pain as well as a gertrudis" he obtained [id number] which has been relieving some of his pain. Discussed hyaluronic acid injections with the patient and he would like to proceed with these. Send a communication to nursing staff to begin prior authorization for bilateral knees and once thisis approved to schedule 3 consecutive visits in January for his injections. Patient was satisfied with today's phone call, all questions were answered. Total call duration was 4 minutes. Adrianne Garcia PA-C documented in this encounter Plan of Treatment Upcoming Encounters Date Type Department Care Team (Late st Contact Info) Description 02/14/2024 10:40 AM EDT Office Visit Family Practice [address], [place] [address] [place] [address] Raafel Paz, [address] [place] [address] Health Maintenance Due Date Last Done Comments CKD PHOS USE SMARTSET 58434 1971 Cologuard 1998 Fecal Occult Blood Test 1998 Sigmoidoscopy 1998 Adult Wellness Visit 2019 Albumin/Creatinine Ratio 09/01/2022 09/01/2021 COVID-19 Vaccine ( season) 2023 10/11/2023, 02/15/2023, 04/06/2022, Additional history exists Influenza Vaccine (FLU shot) (#1) 2023 02/06/2023, 03/05/2022, 01/10/2021, Additional history exists GFR 04/11/2024 10/11/2023, 08/2023, 04/04/2023, Additional history exists Depression Screening 04/26/2024 04/26/2023 CKD HGB USE SMARTSET 16572 10/10/202410/10, 10/11/2023, 03/30/2023, Additional history exists HbA1c [...] Not on filedocumented as of this encounter Visit Diagnoses Diagnosis Primary osteoarthritis of both knees- Primary Primary localized osteoarthrosis, lower leg documented in this encounter Care Teams Merchandise Executive Relationship Specialty Start Date End Date Rafale Paz DO [address] [place] [address] PCP - General Internal Medicine 10/06/23 documented as of this encounter
--- OUTSIDE RECORDS SUMMARY | 2024-01-05 08:28 | External Medical Summary | Summary of Care ---
Author Name Unknown Organization [facility] Address [address] [facility] [place] [address] Phone [phone] Care Team Providers Care Wound Care Specialist Name Role Phone Rafael Paz DO Primary Care Provider [phone] Reason for Visit * Reason Onset Date Comments Med Request 01/04/2024 EUFLEXXA Encounter Details Date Type Department Care Team (Late st Contact Info) Description 01/04/2024 Telephone Orthopaedics [facility] [address] [place] [address] Adrianne Garcia PA-C [address] [place] [address] Med Request (EUFLEXXA/) Allergies Active Allergy Reactions [...] MCG/0.3 mL, 12 YRS AND ABOVE, IM (ParaShoot-Comirnaty) 10/11/2023 COVID-19, MRNA-LNP, 23-24, P F, 50 MCG/0.5 mL, 12 YRS AND ABOVE, IM (MODERNA-Spikevax) 02/15/2023 COVID-19, mRNA, LNP-s, PF, B ooster, 100mcg/0.5mg (Moderna) 04/23/2021 Covid-19, Mrna, Lnp-s, Pf, B ivalent, 30 Mcg, IM, 12 yrs and above ([employer]) 04/06/2022 HepA Inact/HepB Recomb>=18yrs old 06/07/2008,03/2008,11/17/2007 Pneumococcal [...] encounter Miscellaneous Notes * Telephone Encounter - Yoselin Arteaga MED ASSIST - 01/04/2024 8:46 AM EDT Orthopaedics Pre-Cert Request Medication/Disease State Information: Medication: Hyaluronate- Euflexxa (J7323): inject 20 mg (2 mL) once weekly for 3 weeks (total of 3 injections). Route to [id number] Is there radiological proof(x-ray, cat scan, mri [...] patient in January for series of injections Alvaro Perdomo documented in this encounter Plan of Treatment Upcoming Encounters Date Type Department Care Team (Late st Contact Info) Description 02/14/2024 10:40 AM EDT Office Visit Family Practice [address], [address] [place] [address] Rafael Paz, [address] [place] [address] Health Maintenance Due Date Last Done Comments CKD PHOS USE SMARTSET 24892 1971 Cologuard 1998 Fecal Occult Blood Test 1998 Sigmoidoscopy 1998 Adult Wellness Visit 2019 Albumin/Creatinine Ratio 09/01/2022 09/01/2021 COVID-19 Vaccine ( season) 2023 10/11/2023, 02/15/2023, 04/06/2022, Additional history exists Influenza Vaccine (FLU shot) (#1) 2023 02/06/2023, 03/05/2022, 01/10/2021, Additional history exists GFR 04/11/2024 10/11/2023, 08/2023, 04/04/2023, Additional history exists Depression Screening 04/26/2024 04/26/2023 CKD HGB USE SMARTSET 37015 10/10/202410/10, 10/11/2023, 03/30/2023, Additional history exists HbA1c [...] filedocumented as of this encounter Care Teams Wound Care Specialist Relationship Specialty Start Date End Date Rafael Paz DO [address] [place] [address] PCP - General Internal Medicine 10/06/23 documented as of this encounter
--- OUTSIDE RECORDS SUMMARY | 2024-01-05 08:28 | External Medical Summary | Summary of Care ---
Author Name Unknown Organization [facility] Address [address] [facility] [place] [address] Phone [phone] Care Team Providers Care Cyber Intel Planner Name Role Phone Rafael Paz DO Primary Care Provider [phone] Reason for Visit * Reason Onset Date Comments Med Request 01/04/2024 Encounter Details Date Type Department Care Team (Late st Contact Info) Description 01/04/2024 Telephone Orthopaedics [facility] [address] [place] [address] Adrianne Garcia PA-C [address] [place] [address] Med Request Allergies Active Allergy Reactions Criticality Noted Date [...] weeks (total of 3 injections). Route to [id number] Is there radiological proof(x-ray, cat scan, mri [...] EDT Office Visit Family Practice [address], [address] [place] [address] Rafael Paz, DO [address] [place] [address] Health Maintenance Due Date Last Done Comments CKD PHOS USE SMARTSET 56192 1971 Cologuard 1998 Fecal Occult Blood Test 1998 Sigmoidoscopy 1998 Adult Wellness Visit 2019 Albumin/Creatinine Ratio 09/01/2022 09/01/2021 COVID-19 Vaccine ( season) 2023 10/11/2023, 02/15/2023, 04/06/2022, Additional history exists Influenza Vaccine (FLU shot) (#1) 2023 02/06/2023, 03/05/2022, 01/10/2021, Additional history exists GFR 04/11/2024 10/11/2023, 08/2023, 04/04/2023, Additional history exists Depression Screening 04/26/2024 04/26/2023 CKD HGB USE SMARTSET 94328 10/10/202410/10, 10/11/2023, 03/30/2023, Additional history exists HbA1c [...] filedocumented as of this encounter Care Teams Cyber Intel Planner Relationship Specialty Start Date End Date Rafael Paz DO [address] [facility] [place] [address] PCP - General Internal Medicine 10/06/23 documented as of this encounter
[2024-01-05] MEDS ORDERED: DEXAMETHASONE SOD INJ 4 MG/ML VIAL ONE (10:01)
[2024-01-05] MEDS ORDERED: ROCURONIUM BROMIDE 10 MG/ML 5 ML VIAL IV ONE ×4 (10:01→16:27)
[2024-01-05] MEDS ORDERED: ONDANSETRON INJ 2 MG/ML 2 ML VIAL ONE (10:01)
[2024-01-05] MEDS ORDERED: LIDOCAINE 2% 2 ML VIAL/AMP(20MG/ML) INFIL ONE (10:01)
[2024-01-05] MEDS ORDERED: fentaNYL citrate PF 100 MCG/2 ML VIAL ONE (10:01)
[2024-01-05] MEDS ORDERED: GLYCOPYRROLATE 0.2 MG/ML VIAL ONE (10:01)
[2024-01-05] MEDS ORDERED: PROPOFOL IV EMULSION 10 MG/ML 20 ML VIAL IV ONE (10:01)
[2024-01-05] MEDS: LR 15ML/HR IV SCH (10:06)
[2024-01-05] MEDS ORDERED: ePHEDrine sulfate 50 MG/ML AMP ONE (10:06)
[2024-01-05] MEDS: HEPARIN SOD 5,000 UNIT/0.5 ML VIAL SQ SCH ×2 (10:06→21:14)
--- NOTE | 2024-01-05 11:48 | History & Physical Bridge Note ---
Date of Service January 05, 2024 History & Physical Bridge Note I have examined the patient, reviewed the History & Physical and in the interval since the performance of the History & Physical I have noted the following changes of clinical significance: no changes noted
[2024-01-05] MEDS: ceFAZolin 2000MG 2,000 MG/15 ML SYR IV SCH ×2 (12:21→21:14)
[2024-01-05] MEDS ORDERED: REMIFENTANIL HCL 1 MG VIAL IV ONE (12:50)
[2024-01-05] MEDS ORDERED: PHENYLEPHRINE 100MCG/ML 10ML SYR IV ONE ×2 (13:57→14:45)
[2024-01-05] MEDS ORDERED: PROMETHAZINE HCL 6.25 MG in SODIUM CHLORIDE 0.9% 50 ML IV PRN (14:01)
[2024-01-05] MEDS ORDERED: fentaNYL citrate PF 100 MCG/2 ML VIAL IV PRN (14:01)
[2024-01-05] MEDS ORDERED: ePHEDrine sulfate 50 MG/ML AMP IV PRN (14:01)
[2024-01-05] MEDS ORDERED: ATROPINE SULFATE 0.1 MG/ML 10ML SYR IV PRN (14:01)
[2024-01-05] MEDS ORDERED: HYDROmorphone INJ 2 MG/ML SYR/VIAL IV PRN (14:01)
[2024-01-05] MEDS ORDERED: ONDANSETRON INJ 2 MG/ML 2 ML VIAL IV PRN ×2 (14:01→18:47)
[2024-01-05] MEDS ORDERED: ALBUTEROL HFA 8 GM INHALER INH ONE (15:35)
[2024-01-05] MEDS ORDERED: PHENYLEPHRINE HCL 10 MG/ML VIAL ONE (15:50)
[2024-01-05] MEDS ORDERED: HYDROmorphone INJ 2 MG/ML SYR/VIAL ONE (15:55)
[2024-01-05] MEDS ORDERED: ceFAZolin 330 MG/ML 1 GM VIAL ONE (15:59)
[2024-01-05] MEDS: ceFAZolin 2000MG 2,000 MG/15 ML SYR IV ONE (16:15)
[2024-01-05] MEDS: BUPIVACAINE 0.5 % 5 MG/1 ML MPF 30ML VIAL ONE (17:13)
[2024-01-05] MEDS: SURGICEL ABSORB HEMOSTAT 2IN X 14IN TOP ONE (17:13)
--- NOTE | 2024-01-05 17:47 | Operative Report ---
PG Post Operative Report Pre & Post Diagnosis Operation Date: 01/05/24 11:50 Pre-Op Diagnosis: Prostate Cancer Post-Op Diagnosis: Prostate Cancer I identified the patient and participated in the time-out.: Yes Procedure Operation Date: 01/05/24 11:50 Actual Procedures p Robotic Assisted Laparoscopic Radical Retropubic Prostatectomy - Akshat Soto MD Surgeon Akshat Soto MD Health Informatics Specialist SANDY Reina, SANDY Hearn Estimated Blood Loss 100 Findings See Below Fairly dense sigmoid adhesions requiring sharp lysis of adhesions. These extended down into the pelvis and somewhat fixed the rectum in place, making the remainder of the procedure challenging due to space limitation. Radical prostatectomy performed, notable thickening of his pedicles. Specimens 1) periprostatic fat 2) prostate, vas deferens, seminal vesicles Drains Hector catheter per urethra, 10 cc in balloon Anesthesia Type General Complications none Disposition Accompanied Patient To Recovery: Yes Disposition: Recovery Room Indications This is a 68-year-old male followed by urology for prostate cancer. He presents to the OR today for robot-assisted radical prostatectomy Description of Procedure The patient was identified in the preoperative holding area and informed consent was confirmed. He was then brought to the operating room where general anesthesia was initiated. He was placed supine on the operating room table with all pressure points appropriately padded. His abdomen and genitalia were prepped and draped in the usual sterile fashion and a timeout was performed. A 2 cm incision was made above the umbilicus and then a Veress needle was used to obtain access to the abdomen. Proper position was confirmed with the drop test and low initial insufflation pressure. The abdomen was insufflated with CO2 to a pressure of 15 mmHg. An 8 mm robotic port was placed in the incision and the robotic camera was inserted. The abdominal cavity was surveyed, demonstrating no injury to intra-abdominal contents. There were some fairly dense sigmoid adhesions to the left lower quadrant which extended down toward the rectum with adhesions to the sidewall of the pelvis. The remaining robotic ports were placed under direct visualization, with 2 robotic ports on the left side and 1 robotic port on the right. A 12 mm graduate assistant port was placed on the right side as well, and a 5 mm graduate assistant port was placed in the right upper quadrant. The robot was then docked. I began by sharply lysing the adhesions of the sigmoid colon and the side of the rectum. I spent approximately 45 minutes attempting to free up the colon and rectum so they could be reflected out of the pelvis. There was an area of adhesions that was too dense for me to safely divide. I was able to reflect the rectum back, however periodically would retract back into the pelvis. This made visualization for the remainder of the case somewhat challenging. Using electrocautery, the bladder was then dropped from the anterior wall of the abdomen, exposing the space of Retzius. This dissection was carried down to expose the pelvic brim and subsequently the anterior surface of the prostate and the endopelvic fascia. The left side was notable for sticky fat which did not pull off pelvic sidewall easily. The fat overlying the anterior of the prostate was removed and sent for pathologic analysis, labeled as 'periprostatic fat'. The endopelvic fascia was then divided on each side to expose the lateral aspects of the prostate and the lateral aspects of the pedicles. A single 3-0 V-Loc suture was used to ligate the dorsal venous complex to prevent backbleeding in subsequent steps. The fourth arm of the robot was then used to put some gentle traction on the bladder, and the bladder neck was identified. Using electrocautery, the anterior bladder neck was dissected to expose the Hector catheter, whose tip was removed from the bladder and held anteriorly. The posterior bladder neck dissection was then completed. At this point bilateral vas deferens were exposed and isolated. The vas deferens were cauterized and then divided. Bilateral seminal vesicles were dissected out as well. The left seminal vesicle was somewhat scarred in place and the very tip shredded off during dissection. Denonvilliers fascia was then divided and the posterior prostate dissection was carried up as far as possible toward the urethra. The pedicles were then divided using the vessel sealer. Both pedicles had some rather thick-walled blood vessels and there were some calcifications on the left side. Attention was turned anteriorly and the dorsal venous complex was divided using sharp dissection and electrocautery. The V-Loc from earlier was used to reinforce this as there was a small amount of dorsal venous bleeding. The urethra was isolated and then divided sharply. At this point, the prostate was free and was placed in a specimen bag. Due to poor exposure from his adhesions, I opted not to perform pelvic lymph node dissection. The pelvis was inspected and meticulous hemostasis was ensured. Double-armed V- Loc suture was then used to re-anastomose the bladder neck with the urethra. Once this was complete, the anastomosis was tested by instilling 60 mL of normal saline into the bladder. Satisfied that the anastomosis was watertight, the catheter balloon was inflated with 10 mL of normal saline. Surgicel was applied to the lateral aspects of the pelvis for hemostasis. The abdomen was again inspected and no injuries were appreciated to intra- abdominal contents. The robot was then undocked. The supraumbilical incision was extended and the prostate was extracted. 0 Vicryl suture was then used to close the fascia at this incision. All skin incisions were closed with 4-0 Monocryl suture and then a layer of Dermabond was applied. The patient was then awakened from anesthesia and was brought to the PACU in stable condition. SANDY Reina acted as the bedside graduate assistant for the duration of the case. She assisted with gaining access, providing retraction and suction. Passing in sutures and applying clips as needed. She also helped with specimen extraction and closing. Of note, SANDY Hearn was also at the bedside learning how to be international first officer. I attest to the content of the Intraoperative Record and any orders documented therein. Any exceptions are noted below.
--- NOTE | 2024-01-05 18:30 | Anesthesiology Progress Note ---
Date of Service January 05, 2024 Anesthesia Post Procedure Vital Signs Vital Signs: Temp Pulse Pulse Resp BP Pulse Ox O2 Del Method 01/05/24 18:25 97.7 F 77 14 123/69 98 Nasal Cannula 01/05/24 18:15 80 12 111/68 95 Nasal Cannula 01/05/24 18:05 80 12 119/69 94 Nasal Cannula 01/05/24 17:55 92 H 14 134/92 99 Oxymask 01/05/24 17:45 97.2 F L 100 H 18 145/84 H 97 Oxymask 01/05/24 09:34 97.9 F 65 20 140/84 95 Room Air O2 Flow Rate 01/05/24 18:25 2 01/05/24 18:15 2 01/05/24 18:05 3 01/05/24 17:55 4 01/05/24 17:45 8 01/05/24 09:34 Transfer of Care Handoff Completed per policy Notes Mental Status: alert / awake / arousable and participated in evaluation Patient Amnestic to Procedure: Yes Nausea / Vomiting: adequately controlled Pain: adequately controlled Airway Patency, RR, SpO2: stable & adequate BP & HR: stable & adequate Hydration State: stable & adequate Anesthetic Complications: no major complications apparent and Pt Satisfied with anesthetic care
[2024-01-05] MEDS ORDERED: HYDROmorphone INJ 0.5 MG/0.5 ML SYR IV PRN (18:47)
[2024-01-05] MEDS ORDERED: oxyCODONE HCL IR 5 MG TAB (IMMEDIATE RELEASE) PO PRN (18:47)
[2024-01-05] MEDS ORDERED: BENZONATATE 100 MG CAPSULE PO PRN (18:47)
[2024-01-05] MEDS: SODIUM CHLORIDE 0.9% 1,000 ML IV SCH (19:51)
[2024-01-05] MEDS: ACETAMINOPHEN 325 MG TAB PO SCH (19:51)
[2024-01-05] MEDS: ROSUVASTATIN CALCIUM 5 MG TAB PO SCH (21:14)
[2024-01-05] MEDS: DOCUSATE SODIUM 100 MG CAP PO SCH (21:14)
[2024-01-05] MEDS: LACTATED RINGER'S 1,000 ML IV SCH (22:34)
[2024-01-06] MEDS: PHENAZOPYRIDINE HCL 200 MG TAB PO STA (00:59)
[2024-01-06] MEDS: HYDROmorphone INJ 0.5 MG/0.5 ML SYR IV PRN (01:51)
[2024-01-06] MEDS: oxyCODONE HCL IR 5 MG TAB (IMMEDIATE RELEASE) PO PRN (04:23)
[2024-01-06 07:03] LABS: Basophils # (auto) 0.03 K/uL (0.00-0.20); Basophils % (auto) 0.2 %; Hematocrit (blood only) 38.1 % (42.0-52.0); Hemoglobin 13.2 g/dl (14.0-18.0); Immature Granulocytes # (auto) 0.06 K/uL (0.01-0.20); Immature Granulocytes % (auto) 0.4 %; Lymphocytes # (auto) 0.88 K/uL (1.20-3.40); Lymphocytes % (auto) 5.6 %; Mean Corpuscular Hemoglobin 32.6 pg (25.0-34.0); Mean Corpuscular Hgb Conc 34.6 g/dL (32.0-36.0); Mean Corpuscular Volume 94.1 fL (80.0-100.0); Mean Platelet Volume 9.9 fL (9.4-12.4); Monocytes # (auto) 0.98 K/uL (0.11-0.59); Monocytes % (auto) 6.2 %; Neutrophils # (auto) 13.87 K/uL (1.40-6.50); Neutrophils % (auto) 87.6 %; Platelet Count 168 K/uL (130-400); RDW Coefficient of Variation 12.8 % (11.5-14.5); RDW Standard Deviation 44.5 fL (36.4-46.3); Red Blood Count 4.05 M/uL (4.70-6.10); White Blood Count 15.82 K/ul (4.8-10.8)
[2024-01-06 07:26] LABS: BUN Creatinine Ratio 15.2 (10-20); Calcium 8.2 mg/dl (8.6-10.3); Est GFR (African American) 59.6 ml/min; Est GFR (Non-African American) 51.4 ml/min; Potassium 4.3 mmol/L (3.5-5.1)
--- NOTE | 2024-01-06 08:22 | Urology Progress Note ---
Date of Service January 06, 2024 Assessment & Plan (1) Prostate cancer: Plan: Overall he is recovering appropriately from robot-assisted radical prostatectomy on 01/05/2024. This morning he is going to have some breakfast, ambulate. We we will work on pain control with oral medications, using IV as breakthrough if needed. If he is feeling well later this morning, I think he is potentially ready for discharge home, although he had a somewhat extensive dissection and may require another day for recovery prior to discharge. Suspect his leukocytosis is reactive to his recent surgery rather than an indicator of infection at this point, we will continue to monitor. He received standard perioperative antibiotics. Hector catheter will stay in for 1 week and we will arrange voiding trial in the office. Admission and Anticipated Discharge Date Admission Date: January 05, 2024 Subjective Feeling okay this morning, had some pelvic pain overnight and continues to have some of this. Has not had much to eat yet, ready for breakfast this morning Has ambulated to the bathroom but not in the halls yet No bowel movements yet Small clots in Hector catheter overnight, but urine seems to be gradually clearing Mild leukocytosis this morning (WBC 15.8), creatinine stable at 1.38 Physical Exam Physical Exam: Resting in bed, NAD Abdomen is soft, minimally tender to palpation Incisions reapproximated with Dermabond, gauze and Tegaderm over 2 of the incisions which were weeping Hector catheter in position draining clear, pink-tinged urine, no clots in the line Results & Data Vital Signs (Past 12 Hours) Vital Signs Temp Pulse Pulse Resp BP Pulse Ox O2 Del Method 01/06/24 07:43 36.7 C 90 20 120/72 95 Nasal Cannula 01/06/24 04:00 37.0 C 91 H 18 136/70 96 Nasal Cannula 01/05/24 23:17 36.5 C 92 H 18 124/77 96 Nasal Cannula 01/05/24 21:23 36.6 C 101 H 20 125/82 95 Nasal Cannula O2 Flow Rate 01/06/24 07:43 2 01/06/24 04:00 2 01/05/24 23:17 2 01/05/24 21:23 2 PG Care Time/CCT Total # of Minutes Spent Total Time Spent with Patient: Total time spent is greater than 50% in coordination of care (as documented) at patient's floor/unit and/or counseling patient: Coding Level of Care Code None Diagnoses Prostate cancer C61
[2024-01-06] MEDS: amLODIPine BESYLATE 5 MG TAB PO SCH (08:38)
[2024-01-06] MEDS: LOSARTAN POTASSIUM 50 MG TAB PO SCH (08:38)
[2024-01-06] MEDS: hydroCHLOROthiazide 25 MG TAB PO SCH (08:38)
[2024-01-06] MEDS: buPROPion SR 150 MG TABCR PO SCH (08:39)
[2024-01-06] MEDS: IBUPROFEN 200 MG TAB PO PRN (11:48)
[2024-01-07 06:32] LABS: Basophils # (auto) 0.04 K/uL (0.00-0.20); Basophils % (auto) 0.3 %; Eosinophils # (auto) 0.05 K/uL (0.00-0.50); Eosinophils % (auto) 0.4 %; Hematocrit (blood only) 37.2 % (42.0-52.0); Hemoglobin 12.5 g/dl (14.0-18.0); Immature Granulocytes # (auto) 0.03 K/uL (0.01-0.20); Immature Granulocytes % (auto) 0.2 %; Lymphocytes % (auto) 16.1 %; Mean Corpuscular Hemoglobin 31.9 pg (25.0-34.0); Mean Corpuscular Hgb Conc 33.6 g/dL (32.0-36.0); Mean Corpuscular Volume 94.9 fL (80.0-100.0); Mean Platelet Volume 10.2 fL (9.4-12.4); Monocytes # (auto) 0.72 K/uL (0.11-0.59); Monocytes % (auto) 5.8 %; Neutrophils # (auto) 9.59 K/uL (1.40-6.50); Neutrophils % (auto) 77.2 %; Platelet Count 149 K/uL (130-400); RDW Coefficient of Variation 13.2 % (11.5-14.5); RDW Standard Deviation 46.5 fL (36.4-46.3); Red Blood Count 3.92 M/uL (4.70-6.10); White Blood Count 12.43 K/ul (4.8-10.8)
[2024-01-07 06:58] LABS: BUN Creatinine Ratio 17.2 (10-20); Calcium 8.4 mg/dl (8.6-10.3); Creatinine Clr Calc Pharmacy 73.3 ml/min; Est GFR (African American) 65.3 ml/min; Est GFR (Non-African American) 56.3 ml/min
--- NOTE | 2024-01-07 12:07 | Urology Progress Note ---
Date of Service January 07, 2024 Assessment & Plan (1) Prostate cancer: Plan: Postop day 2 status post robot-assisted radical prostatectomy on 01/05/2024. Patient has been ambulating. Has been tolerating diet. Has had some severe episodes of breakthrough pain. Had to require medications both IV and oral in order to control pain. Patient is most concerned about this going home. His valves and vitals have all improved. Did discuss different options moving forward. Feels more comfortable being monitored for an additional day. Discussed different options moving forward. Encourage patient to ambulate to monitor intake to increase diet and to continue with incentive spirometry. Will continue to follow. Admission and Anticipated Discharge Date Admission Date: January 05, 2024 Subjective Postop from urologic surgery. Patient has been tolerating well, but is having some pain and discomfort. Incisions have been mild sore. Having some abdominal distension/gas pains. Has tolerated catheter. Patient has continued to have some significant episodes of severe pain and is concerned about going home without being able to have pain control. Did discuss options for medications at home. Has not had uncontrollable pain. Patient has been ambulating. Has not had bowel movement or major change. No new nausea or vomiting. Had tolerated anesthesia without major problems Tolerated diet postoperatively. Review of Systems Review of Systems: All systems reviewed & are unremarkable except as noted in HPI & below Physical Exam Physical Exam: General: Alert in no acute distress. HEENT: Normocephalic Atraumatic. Inspection normal. Cranial Nerves 2-12 Grossly intact. Normal inspection of face. Normal inspection of neck. Psychologic: Normal affect. Respiratory: Nonlabored. No use of accessory muscles. No tachypnea or dyspnea. Cardiovascular: No tachycardia Skin: [place] and Dry. No rashes or visible lesions. Extremities/Lymphatics: No edema Abdomen: Appropriately tender. Mild distended. No rebound or guarding. Wound: Clean, dry, covered. Results & Data Vital Signs (Past 12 Hours) Vital Signs Temp Pulse Pulse Resp BP Pulse Ox O2 Del Method 01/07/24 11:14 37.1 C 82 16 113/75 92 Room Air 01/07/24 08:20 36.6 C 77 16 140/74 94 Room Air 01/07/24 07:50 Room Air PG Care Time/CCT Total # of Minutes Spent Total Time Spent with Patient: Total time spent is greater than 50% in coordination of care (as documented) at patient's floor/unit and/or counseling patient: Coding Level of Care Code None Diagnoses Prostate cancer C61
[2024-01-07] MEDS: POLYETHYLENE (MIRALAX) 17 GM PACK PO SCH (17:05)
[2024-01-08 06:46] LABS: Basophils # (auto) 0.05 K/uL (0.00-0.20); Basophils % (auto) 0.6 %; Eosinophils % (auto) 1.1 %; Hematocrit (blood only) 38.2 % (42.0-52.0); Hemoglobin 13.2 g/dl (14.0-18.0); Immature Granulocytes # (auto) 0.04 K/uL (0.01-0.20); Immature Granulocytes % (auto) 0.5 %; Lymphocytes # (auto) 1.75 K/uL (1.20-3.40); Lymphocytes % (auto) 19.9 %; Mean Corpuscular Hemoglobin 32.7 pg (25.0-34.0); Mean Corpuscular Hgb Conc 34.6 g/dL (32.0-36.0); Mean Corpuscular Volume 94.6 fL (80.0-100.0); Mean Platelet Volume 10.5 fL (9.4-12.4); Monocytes # (auto) 0.65 K/uL (0.11-0.59); Monocytes % (auto) 7.4 %; Neutrophils # (auto) 6.19 K/uL (1.40-6.50); Neutrophils % (auto) 70.5 %; Platelet Count 150 K/uL (130-400); Red Blood Count 4.04 M/uL (4.70-6.10); White Blood Count 8.78 K/ul (4.8-10.8)
[2024-01-08 07:09] LABS: BUN Creatinine Ratio 17.6 (10-20); Calcium 8.9 mg/dl (8.6-10.3); Creatinine Clr Calc Pharmacy 86.8 ml/min; Est GFR (African American) 80.2 ml/min; Est GFR (Non-African American) 69.2 ml/min; Potassium 4.2 mmol/L (3.5-5.1)
[2024-01-08 07:56] VITALS: RESP 16
[2024-01-08 12:20] VITALS: BP 128/79; TEMP 98.4; O2SAT 91
--- NOTE | 2024-01-08 12:49 | Urology Progress Note ---
Date of Service January 08, 2024 Assessment & Plan (1) Prostate cancer: Plan: Postop day 3 status post robot-assisted radical prostatectomy on 01/05/2024. Patient has been ambulating. Has been tolerating diet. Has not had further episodes of breakthrough pain. Patient has been working with PT, has been ambulating. Has been increasing diet. Has had better pain control. Did discuss different options moving forward. Encourage patient to ambulate to monitor intake to increase diet and to continue with incentive spirometry. Will continue to follow. Patient is comfortable with discharge. Will plan to followup with Dr. Soto Admission and Anticipated Discharge Date Admission Date: January 05, 2024 Subjective Postop from urologic surgery. Patient has been tolerating well, but is having some pain and discomfort. Incisions have been mild sore. Having some abdominal distension/gas pains. Has tolerated catheter. Patient has been working with PT. Has increased diet somewhat. Has had much better pain control. Has not had uncontrollable pain. Patient has been ambulating. Has not had bowel movement or major change. No new nausea or vomiting. Had tolerated anesthesia without major problems Tolerated diet postoperatively. Review of Systems Review of Systems: All systems reviewed & are unremarkable except as noted in HPI & below Physical Exam Physical Exam: General: Alert in no acute distress. HEENT: Normocephalic Atraumatic. Inspection normal. Cranial Nerves 2-12 Grossly intact. Normal inspection of face. Normal inspection of neck. Psychologic: Normal affect. Respiratory: Nonlabored. No use of accessory muscles. No tachypnea or dyspnea. Cardiovascular: No tachycardia Skin: [place] and Dry. No rashes or visible lesions. Extremities/Lymphatics: No edema Abdomen: Appropriately tender. Mild distended. No rebound or guarding. Wound: Clean, dry, covered. Results & Data Vital Signs (Past 12 Hours) Vital Signs Temp Pulse Resp BP Pulse Ox O2 Del Method 01/08/24 12:17 36.9 C 78 16 128/79 91 Room Air 01/08/24 07:53 36.8 C 70 16 139/88 95 Room Air PG Care Time/CCT Total # of Minutes Spent Total Time Spent with Patient: Total time spent is greater than 50% in coordination of care (as documented) at patient's floor/unit and/or counseling patient: Coding Level of Care Code None Diagnoses Prostate cancer C61
--- NOTE | 2024-01-08 13:37 | Discharge Summary ---
Date of Service January 08, 2024 Admission HPI Per Admitting Provider See H&P Admission Exam Per Admitting Provider See H&P Principal Diagnosis Prostate cancer Discharge Exam General: Alert in no acute distress. HEENT: Normocephalic Atraumatic. Inspection normal. Cranial Nerves 2-12 Grossly intact. Normal inspection of face. Normal inspection of neck. Psychologic: Normal affect. Respiratory: Nonlabored. No use of accessory muscles. No tachypnea or dyspnea. Cardiovascular: No tachycardia Skin: [place] and Dry. No rashes or visible lesions. Extremities/Lymphatics: No edema Abdomen: Appropriately tender. Mild distended. No rebound or guarding. Wound: Clean, dry, covered. Discharge Data Allergies Allergy/AdvReac Type Severity Reaction Status Date / Time latex Allergy Mild Rash Verified 01/05/24 09:39 Cfumfup-FKZ-AjN Reductase AdvReac Intermediate Cough Verified 01/05/24 09:39 Inhibitor [Pfhfsbw-Hma-Dcm Reductase Inhibitor] Procedures Performed Operation Date: 01/05/24 11:50 Actual Procedures p Robotic Assisted Laparoscopic Radical Retropubic Prostatectomy(Not Applicable) - Akshat Soto MD Hospital Course (1) Prostate cancer: Postop day 3 status post robot-assisted radical prostatectomy on 01/05/2024. Patient has been ambulating. Has been tolerating diet. Has not had further episodes of breakthrough pain. Patient has been working with PT, has been ambulating. Has been increasing diet. Has had better pain control. Did discuss different options moving forward. Encourage patient to ambulate to monitor intake to increase diet and to continue with incentive spirometry. Will continue to follow. Patient is comfortable with discharge. Will plan to followup with Dr. Soto Total Time Total Time Spent Total Time Spent (In Minutes): 10 minutes Total Time Includes: Examination of the Patient, Discharge Planning, Medication Reconciliation and Communication With Other Providers Discharge Plan Discharge Items Patient Disposition: Home - Self-Care Reason For Visit: Prostate Cancer Discharge Diagnosis: Prostate cancer Activity: Per Instructions section Non-emergency contact: Urologist Call non-emergency contact if: your pain is worsening, you have a fever, your temperature is above 101, your wound has increased redness, your wound has increased drainage and your wound pain has increased Follow-up/Referrals: Akshat Soto MD [Physician] - 01/17/24 8:40 am Rafael Paz DO [Primary Care Provider] - Diet: Regular Addtl Attending Provider Instructions: The surgery you had was: Robot-assisted radical prostatectomy. Please take all medications as prescribed and keep all follow-ups as scheduled. Please call our office at [phone] with any questions, concerns or need to reschedule appointments for any reason. We are happy to assist you Medications: Please take all medications as prescribed. For pain control, you can take tylenol every 6 hours. You can also take ibuprofen every 6 hours. If you have been prescribed a narcotic pain medication, please take this according to the instructions on the label. You have been prescribed a single dose of antibiotics (Bactrim) to be taken 1 hour prior to your appointment for javed catheter removal. Activity: We recommend having someone with you for the first few days after surgery to help care for you. For the first 2 weeks after surgery, we would like you to get up and walk around your house. However, we recommend limit physical activity that would i ncrease your heart rate. This will allow your body to rest and heal. Take naps if you feel tired. Don't lift anything heavier than 10 pounds, mow the law or ride a bicycle until your follow-up appointment. Please avoid long car rides. Home Care: Unless directed otherwise, drink 6 to 8 glasses of water a day (enough to keep your urine light colored). This will also help keep a healthy flow of urine. We recommend using a stool softener such as colace or miralax for the first two weeks to avoid constipation. Javed Catheter or Suprapubic Catheter care: Keep the catheter well secured with either a leg back or leg strap with large bag. Empty your bag when it's about half full. You may notice some blood in the bag. This is normal after surgery and while the catheter is in place. Use mild soap (such as Dove or Dial) and water to wash the catheter and the head of your penis daily, or more frequently if needed. Return to your normal diet, we encourage good protein intake to promote healing. You may shower as normal. Please avoid tub baths or soaking until catheter removed and incisions well healed. Wearing sweat pants while you have the catheter is recommended, they will be more comfortable. Follow-up We will have you come to the office in approximately 7 days for catheter removal. - Please remember to take your dose on antibiotics 1 hour prior to this appointment. We will discuss pathology results and next steps at this visit. Call [facility] at [phone] right away if you have any of the following: Chest pain or trouble breathing (call 911 or go to the hospital) Fever of 101F or higher, uncontrolled vomiting Heavy bleeding, clots, or bright red blood from the catheter Catheter that falls out or stops draining Foul-smelling discharge from your catheter Redness, swelling, warmth, or increased pain at your incision site Drainage, pus, or bleeding from your incision Pending Studies at Discharge: No Stand-Alone Forms: [facility], Smoking Cessation Medications and DC Order Prescriptions: New sulfamethoxazole-trimethoprim [Bactrim DS] 800-160 mg tablet 1 tab PO ONCE 1 Days Qty: 1 0RF oxycodone-acetaminophen [Percocet] 5-325 mg tablet 1 tab PO TID PRN (Reason: pain) Qty: 10 0RF Continued bupropion HCl 150 mg tablet sustained-release 12 hr 150 mg PO QAM Patient Comments: 12/27/23: doesn't think he's taking currently losartan 100 mg tablet 100 mg PO QAM Qty: 90 3RF amlodipine 5 mg tablet 5 mg PO QAM Qty: 90 3RF Rx Instructions: TAKE ONE TABLET BY MOUTH EVERY DAY hydrochlorothiazide 25 mg tablet 25 mg PO QAM Qty: 90 3RF rosuvastatin 5 mg tablet 5 mg PO HS Qty: 90 3RF acetaminophen [Tylenol] 325 mg Tablet 325 mg PO QID PRN (Reason: Pain) meloxicam 7.5 mg tablet 7.5 mg PO UD PRN (Reason: Pain) benzonatate 100 mg Capsule 100 mg PO TID PRN (Reason: Cough) Discontinued tamsulosin 0.4 mg capsule 0.4 mg PO DAILY Patient Comments: 12/27/23: unsure if pt is taking this medication Discharge Orders: Discharge Order (Routine); Ordered 01/08/24 Ordered By: Jonny Garcia Admission Data Admit Date/Time: 01/05/24 17:16 Attending Provider: Akshat Soto Admit Provider: Akshat Soto Primary Care Provider: Rafael Paz Coding Level of Care Code 56701 IN/OBS DISCH 30 MIN/LESS Diagnoses Prostate cancer C61
[2024-01-08 13:58] VITALS: PULSE 77
== END 2024-01-08 14:50 | disposition home or self-care (01) | DRG 708 ==
LOC: ASU 08:04 → 3W 17:16